=== PATIENT | male | born 1960 | race Caucasian/White ===

== ENCOUNTER 2018-01-22 15:33 | Inpatient (IN) | payer OTHER ==
[~2018-01-22] VITALS: Ht 177.8 cm; Wt 81.6 kg
[2018-01-22] MEDS ORDERED: MORPHINE SULFATE 2 MG/1 ML DISP.SYRIN IV ONE (16:00)
[2018-01-22] MEDS ORDERED: ONDANSETRON 4 MG/2 ML VIAL IV ONE (16:00)
[2018-01-22] MEDS ORDERED: ONDANSETRON 4 MG/2 ML VIAL ONE (16:23)
[2018-01-22] MEDS ORDERED: MORPHINE SULFATE 4 MG/1 ML DISP.SYRIN ONE ×2 (16:23→17:17)
--- NOTE | 2018-01-22 16:33 | NUR ---
Pt to CT via [facility] oseguera noted at this time.
[2018-01-22 16:37] LABS: BASOPHILS # (AUTO) 0.1 K/uL (0.0-8.0); BASOPHILS % (AUTO) 0.4 % (0.0-2.0); EOSINOPHILS % (AUTO) 0.1 % (0.0-7.0); HEMOGLOBIN 15.2 g/dL (12.5-16.3); LYMPHOCYTES # (AUTO) 1.7 K/uL (20.0-40.0); LYMPHOCYTES % (AUTO) 12.2 % (20.5-51.5); MEAN CORPUSCULAR HEMOGLOBIN 30.9 uug (23.8-33.4); MEAN CORPUSCULAR HGB CONC 35 g/dL (32.5-36.3); MEAN CORPUSCULAR VOLUME 89.3 fL (73.0-96.2); MONOCYTES # (AUTO) 0.5 K/uL (2.0-10.0); MONOCYTES % (AUTO) 3.8 % (0.0-11.0); NEUTROPHILS % (AUTO) 83.5 % (38.5-71.5); PLATELET COUNT (AUTO) 201 K/uL (152-348); RED BLOOD CELL COUNT(AUTO) 4.92 MIL/uL (4.06-5.63); WHITE BLOOD COUNT (AUTO) 14.3 K/uL (3.6-10.2)
[2018-01-22 16:38] LABS: *BILIRUBIN,URIN NEGATIVE (NEGATIVE); *BLOOD, URINE NEGATIVE (NEGATIVE); *CLARITY,URINE CLEAR (CLEAR); *COLOR,URINE YELLOW (YELLOW); *KETONES,URINE TRACE (NEGATIVE); *PROTEIN,URINE NEGATIVE (NEGATIVE); *UROBILINOGEN,URINE 0.2 E.U./dl (NORMAL); LEUKOCYTE ESTERASE ,URINE NEGATIVE (NEGATIVE); NITRITE, URINE NEGATIVE (NEGATIVE); PH,URINE 5.5 (5.0-8.0); UGLUCOSE NEGATIVE (NEGATIVE)
[2018-01-22 16:50] LABS: BACTERIA,URINE NONE SEEN /HPF (NONE SEEN); MUCUS,URINE MODERATE /LPF (0-FEW); RBC,URINE 0-3 /HPF (0-3); SQUAMOUS EPITHELIAL CELL,UR FEW /HPF (NONE SEEN); WBC,URINE 0-3 /HPF (0-3)
[2018-01-22] MEDS ORDERED: MORPHINE SULFATE 4 MG/1 ML DISP.SYRIN IV ONE (17:15)
[2018-01-22 17:23] LABS: BILIRUBIN,DIRECT 0.2 mg/dL (0.0-0.2); BILIRUBIN,TOTAL 0.7 mg/dL (0.2-1.0); TOTAL PROTEIN, SERUM 7.5 g/dL (6.4-8.2)
[2018-01-22] MEDS ORDERED: METRONIDAZOLE 500 MG/NS 100 ML PIGGYBACK IV ONE (17:45)
[2018-01-22] MEDS ORDERED: LEVOFLOXACIN 750 MG/D5W 150 ML PIGGYBACK IV ONE (17:45)
[2018-01-22] MEDS ORDERED: LEVOFLOXACIN 750MG/D5W 150 ML IV ONE (17:50)
[2018-01-22] MEDS ORDERED: METRONIDAZOLE 500 MG/NS 100ML 100 ML IV ONE (17:50)
[2018-01-22] MEDS ORDERED: AMLO5TAB2 PO (17:53)
[2018-01-22] MEDS ORDERED: LISI-607 PO (17:53)
--- NOTE | 2018-01-22 17:59 | NUR ---
Per pt to be admitted to [facility]. [facility] with NAD noted at this time, states his pain is improved (now 3-4/10).
[2018-01-22] MEDS ORDERED: ONDANSETRON 4 MG/2 ML VIAL IV PRN (18:30)
[2018-01-22] MEDS ORDERED: MORPHINE SULFATE 2 MG/1 ML DISP.SYRIN IV PRN (18:30)
[2018-01-22] MEDS ORDERED: MAGNESIUM HYDROXIDE 30 ML LIQUID UDC PO PRN (18:30)
[2018-01-22] MEDS ORDERED: ACETAMINOPHEN 325 MG TABLET PO PRN (18:30)
[2018-01-22] MEDS ORDERED: Z GUARD REMEDY PASTE 57 GM TUBE TOP PRN (18:30)
--- NOTE | 2018-01-22 18:53 | NUR ---
Pt trans to m/s floor, NAD noted.
--- NOTE | 2018-01-22 18:58 | NUR ---
RECEIVED PT FROM ER VIA [facility]. FAMILY BY BEDSIDE. NO IMMEDIATE S/S OF DISTRESS OR SOB. ID BAND PLACED.
[2018-01-22 19:20] VITALS: BP 156/86
--- NOTE | 2018-01-22 19:33 | NUR ---
REPORT GIVEN TO NIGHT NURSE.
[2018-01-22] MEDS: HYDROCODONE/APAP 5-325MG TABLET PO PRN (19:56)
--- NOTE | 2018-01-22 20:00 | NUR ---
NEW PATIENT ADMITTED FROM ER. PATIENT IS AAOX3, C/O OF ABDOMINAL PAIN PRN MEDS GIVEN ORDERED. VSS WITHIN PATIENT'S BASELINE SAFETY AND COMFORT MEASURES IN PLACE. CALL LIGHT WITHIN PATIENT'S REACH
[2018-01-22 21:00] VITALS: BP 147/88
[2018-01-22] MEDS: IV NS 1000 ML 1,000 ML IV PRN (22:21)
[2018-01-23] VITALS: BP 137/78
[2018-01-23] MEDS: MORPHINE SULFATE 4 MG/1 ML DISP.SYRIN IV PRN ×2 (00:42→14:25)
[2018-01-23] MEDS: METRONIDAZOLE 500 MG/NS 100ML 500 MG in PREMIXED 1 EACH IV SCH ×3 (02:30→17:16)
[2018-01-23 04:00] VITALS: BP 142/85
--- NOTE | 2018-01-23 06:34 | NUR ---
PATIENT IS AWAKE IN BED, SLEPT WELL THROUGH THE SHIFT. PAIN MEDS GIVEN X2 ON THIS SHIFT. PATIENT REPORTED A SMALL AMOUNT OF BLOOD IN HIS STOOL. VSS WITHIN PATIENT BASELINE. NO SIGNIFICANT CHANGES IN STATUS, SAFETY MEASURES MAINTAINED AT ALL TIMES
[2018-01-23 06:55] LABS: BASOPHILS % (AUTO) 0.2 % (0.0-2.0); EOSINOPHILS # (AUTO) 0.1 K/uL (0.0-0.7); EOSINOPHILS % (AUTO) 0.5 % (0.0-7.0); HEMATOCRIT 43.7 % (36.7-47.1); HEMOGLOBIN 15.1 g/dL (12.5-16.3); LYMPHOCYTES # (AUTO) 2.2 K/uL (20.0-40.0); LYMPHOCYTES % (AUTO) 18.7 % (20.5-51.5); MEAN CORPUSCULAR HEMOGLOBIN 30.8 uug (23.8-33.4); MEAN CORPUSCULAR HGB CONC 35 g/dL (32.5-36.3); MEAN CORPUSCULAR VOLUME 89.1 fL (73.0-96.2); MONOCYTES # (AUTO) 0.8 K/uL (2.0-10.0); MONOCYTES % (AUTO) 6.6 % (0.0-11.0); NEUTROPHILS # (AUTO) 8.8 K/uL (1.8-8.9); PLATELET COUNT (AUTO) 185 K/uL (152-348); RED BLOOD CELL COUNT(AUTO) 4.91 MIL/uL (4.06-5.63); WHITE BLOOD COUNT (AUTO) 11.9 K/uL (3.6-10.2)
[2018-01-23 06:56] LABS: MAGNESIUM 1.8 mg/dL (1.8-2.4); PHOSPHOROUS 3.9 mg/dL (2.5-4.9); POTASSIUM 3.8 mmol/L (3.5-5.1)
--- NOTE | 2018-01-23 08:00 | NUR ---
AWAKE ALERT COOPERATE WELL NO PAIN OR SOB , CONTINUE IVF ,, DR BERGER WAS INFORM OF PATIENT HAVING BLACK BLOODY STOOL AND SPECIMEN SENT TO LAB ORDER RESTING WELL WITH CALL LIGHT IN REACH
[2018-01-23] MEDS: HYDROCODONE/APAP 5-325MG TABLET PO PRN (10:59)
[2018-01-23] MEDS: IV NS 1000 ML 1,000 ML IV PRN (12:52)
--- NOTE | 2018-01-23 14:30 | NUR ---
C/O OF ABD PAIN MORPHINE PRN GIVEN ORDER CONTINUE IVF RESTING
[2018-01-23 15:07] VITALS: BP 123/84
--- NOTE | 2018-01-23 17:30 | NUR ---
HEMODYNAMIC STATUS STABLE ,PAIN UNDER CONTROL NO N/V CONTINUE CLEAR LIQ DIET AND IVF SAFETY MEASURE PROVIDED CALL LIGHT IN REACH
[2018-01-23] MEDS: LEVOFLOXACIN 500 MG/D5W 500 MG in PREMIXED 1 EACH IV SCH (17:56)
[2018-01-23 20:00] VITALS: BP 140/87
--- NOTE | 2018-01-23 20:00 | NUR ---
PATIENT IS AWAKE IN BED, HE DENIES PAIN OR DISTRESS. VSS WITHIN PATIENT'S BASELINE. NO CONCERNS AT PRESENT, SAFETY MEASURES IN PLACE. WILL CONTINUE TO MONITOR PATIENT
[2018-01-24] MEDS: IV NS 1000 ML 1,000 ML IV PRN (01:16)
[2018-01-24] MEDS: METRONIDAZOLE 500 MG/NS 100ML 500 MG in PREMIXED 1 EACH IV SCH ×3 (01:17→17:31)
[2018-01-24 05:13] VITALS: BP 130/83
--- NOTE | 2018-01-24 06:32 | NUR ---
PATIENT SLEPT WELL THROUGH THE SHIFT. NO C/O PAIN OR ANY DISTRESS ON THIS SHIFT. VSS STABLE, NO FEVER. NO SIGNIFICANT CHANGES IN STATUS. SAFETY MEASURES MAINTAINED AT ALL TIME
[2018-01-24 06:54] LABS: BASOPHILS % (AUTO) 0.3 % (0.0-2.0); EOSINOPHILS # (AUTO) 0.1 K/uL (0.0-0.7); EOSINOPHILS % (AUTO) 0.8 % (0.0-7.0); HEMATOCRIT 40.8 % (36.7-47.1); HEMOGLOBIN 14.4 g/dL (12.5-16.3); LYMPHOCYTES # (AUTO) 1.9 K/uL (20.0-40.0); LYMPHOCYTES % (AUTO) 20.9 % (20.5-51.5); MEAN CORPUSCULAR HEMOGLOBIN 31.4 uug (23.8-33.4); MEAN CORPUSCULAR HGB CONC 35 g/dL (32.5-36.3); MEAN CORPUSCULAR VOLUME 88.9 fL (73.0-96.2); MONOCYTES # (AUTO) 0.5 K/uL (2.0-10.0); MONOCYTES % (AUTO) 5.9 % (0.0-11.0); NEUTROPHILS # (AUTO) 6.4 K/uL (1.8-8.9); NEUTROPHILS % (AUTO) 72.1 % (38.5-71.5); PLATELET COUNT (AUTO) 165 K/uL (152-348); RED BLOOD CELL COUNT(AUTO) 4.59 MIL/uL (4.06-5.63); WHITE BLOOD COUNT (AUTO) 8.9 K/uL (3.6-10.2)
[2018-01-24 07:02] LABS: POTASSIUM 3.7 mmol/L (3.5-5.1)
[2018-01-24 07:38] LABS: *OCCULT BLOOD STOOL POSITIVE (NEGATIVE)
[2018-01-24] MEDS ORDERED: LEVO500T2 PO (10:38)
[2018-01-24] MEDS ORDERED: METR500T PO (10:38)
[2018-01-24 11:10] VITALS: BP 134/88
[2018-01-24 15:28] VITALS: BP 135/86
[2018-01-24] MEDS: LEVOFLOXACIN 500 MG/D5W 500 MG in PREMIXED 1 EACH IV SCH (17:31)
--- NOTE | 2018-01-24 18:53 | NUR ---
d/c orders received noted and carried out,d/c heplock per md orders,d/c instruction given to the pt,pt left the facility via private car in stable condition.
== END 2018-01-24 18:50 | disposition home or self-care (01) | DRG 372 ==
LOC: ER 15:36 → TELE 18:48 → MED 01-23 16:44
PROVIDERS: ADMIT Internal Medicine; ATTEND Internal Medicine
DX: A04.9 Bacterial intestinal infection, unspecified (principal); K92.1 Melena; I10 Essential (primary) hypertension; Z79.899 Other long term (current) drug therapy
CPT/HCPCS: 36415; 83690; 83735; 84100; 85025; 85730; 86850; 86900; 86901; A4663; J1956; J2270; J2405; J3490; J7030